=== PATIENT | male | born 1970 | race Caucasian/White ===

== ENCOUNTER 2020-03-18 17:26 | Emergency (ER) | payer OTHER ==
[~2020-03-18] VITALS: Ht 180.3 cm; Wt 66.2 kg
[~2020-03-18 17:26] MED LIST: CEL20 PO
[2020-03-18 17:39] VITALS: BP 125/93; Ht 180.3 cm; Wt 66.2 kg
== END 2020-03-18 18:30 | disposition home or self-care (01) ==
LOC: ED 17:26
DX: G89.29 Other chronic pain (principal); F10.229 Alcohol dependence with intoxication, unspecified; Z65.8 Other specified problems related to psychosocial circumstances; Y90.9 Presence of alcohol in blood, level not specified
CPT/HCPCS: J7030

== ENCOUNTER 2020-04-10 20:27 | Emergency (ER) | payer OTHER ==
[~2020-04-10] VITALS: Ht 175.3 cm; Wt 81.6 kg
[2020-04-10 20:40] VITALS: Ht 175.3 cm; Wt 81.6 kg
[2020-04-10 23:11] LABS: BASOPHIL % 0.3 % (0-2); PLATELET COUNT 154 x10^3mcL (130-400)
[2020-04-10 23:12] LABS: RED CELL DISTRIBUTION WIDTH 15.2 % (11.5-14.5)
[2020-04-10 23:25] LABS: CARBON DIOXIDE 27.2 mmol/L (21-32); CHLORIDE SERUM 102 mmol/L (98-107); GFR1 > 60 mL/min; GLUCOSE SERUM 106 mg/dL (74-106); POTASSIUM SERUM 3.4 mmol/L (3.5-5.1); SODIUM SERUM 137 mmol/L (136-145)
[2020-04-10 23:27] LABS: MAGNESIUM 1.5 mg/dL (1.8-2.4)
[2020-04-11 06:37] VITALS: BP 117/72
== END 2020-04-11 06:37 | disposition home or self-care (01) ==
LOC: ED 20:27
PROVIDERS: Emergency Medicine
DX: E86.0 Dehydration (principal); G89.29 Other chronic pain; M54.5 Low back pain; R53.83 Other fatigue
CPT/HCPCS: G0480; J3411; J3475; J3490

== ENCOUNTER 2020-05-09 17:17 | Emergency (ER) | payer OTHER ==
[~2020-05-09] VITALS: Ht 180.3 cm; Wt 72.6 kg
[2020-05-09 17:32] VITALS: Ht 180.3 cm; Wt 72.6 kg
[2020-05-09 19:39] LABS: BASOPHIL % 0.5 % (0-2); PLATELET COUNT 211 x10^3mcL (130-400); RED CELL DISTRIBUTION WIDTH 14.1 % (11.5-14.5)
[2020-05-09 19:50] LABS: CALCIUM 8.9 mg/dL (8.5-10.1); CARBON DIOXIDE 30.6 mmol/L (21-32); CHLORIDE SERUM 103 mmol/L (98-107); GFR1 > 60 mL/min; GLUCOSE SERUM 95 mg/dL (74-106); POTASSIUM SERUM 4.2 mmol/L (3.5-5.1); SODIUM SERUM 142 mmol/L (136-145)
[2020-05-09 19:55] LABS: ALBUMIN 3.9 g/dL (3.4-5.0); ALKALINE PHOSPHATASE 45 U/L (46-116); ALT/SGPT 14 U/L (16-63); AST/SGOT 16 U/L (15-37); BILIRUBIN TOTAL 0.3 mg/dL (0.20-1.00); LIPASE 74 IU/L (73-393); MAGNESIUM 2.1 mg/dL (1.8-2.4); TOTAL PROTEIN, SERUM 7.2 g/dL (6.4-8.2)
[2020-05-10 05:28] VITALS: BP 128/63
== END 2020-05-10 06:53 | disposition home or self-care (01) ==
LOC: ED 17:17
PROVIDERS: Specialist
DX: F10.129 Alcohol abuse with intoxication, unspecified (principal); G89.29 Other chronic pain; M54.9 Dorsalgia, unspecified; M79.671 Pain in right foot
CPT/HCPCS: G0480; J1885; J3411; J3475; J3490